=== PATIENT | female | born 1980 | race Two or more races ===

== ENCOUNTER 2016-06-29 12:47 | Emergency (ER) | payer OTHER ==
[~2016-06-29] VITALS: Ht 165.1 cm; Wt 90.7 kg
[~2016-06-29 12:47] MED LIST: CEPH-570 PO; HYDR-552 PO
[2016-06-29] MEDS ORDERED: IV SET PRIMARY PUMP SET 1 EA INFUS.SET MC ONE ×2 (13:28→14:36)
[2016-06-29] MEDS ORDERED: IV NS 0.9% 1,000 ML ONE (13:28)
[2016-06-29] MEDS ORDERED: KETOROLAC TROMETHAMINE INJ 30 MG/ML VIAL ONE (13:28)
[2016-06-29] MEDS ORDERED: METOCLOPRAMIDE HCL 10 MG/2 ML VIAL ONE (13:28)
[2016-06-29] MEDS ORDERED: diphenhydrAMINE HCL 50 MG/ML VIAL ONE (13:28)
[2016-06-29] MEDS ORDERED: IV NS 0.9% 1,000 ML BAG IV ONE (13:30)
[2016-06-29] MEDS ORDERED: METOCLOPRAMIDE HCL 10 MG/2 ML VIAL IV ONE (13:30)
[2016-06-29] MEDS ORDERED: KETOROLAC TROMETHAMINE INJ 30 MG/ML VIAL IV ONE (13:30)
[2016-06-29] MEDS ORDERED: ONDANSETRON HCL/PF 4 MG/2 ML VIAL IVP ONE (13:30)
[2016-06-29] MEDS ORDERED: diphenhydrAMINE HCL 50 MG/ML VIAL IV ONE (13:30)
[2016-06-29 13:59] LABS: KETONES,URINE Trace (NEGATIVE); LEUKOCYTE ESTERASE ,URINE Large (NEGATIVE)
[2016-06-29 14:00] LABS: ADD UA MICROSCOPIC YES
[2016-06-29 14:01] LABS: PREGNANCY TEST URINE QUAL NEGATIVE (NEGATIVE)
[2016-06-29 14:27] LABS: ADD URINE CULTURE YES; RBC,URINE 0-3 /HPF (0-2)
[2016-06-29] MEDS ORDERED: ONDANSETRON HCL/PF - ER 4 MG/2 ML VIAL IV ONE (14:30)
[2016-06-29] MEDS ORDERED: MORPHINE SULFATE INJ 2 MG/ML DISP.SYRIN IV ONE (14:30)
[2016-06-29] MEDS ORDERED: CEFTRIAXONE 1 G in IV D5W 50 ML IV ONE (14:30)
[2016-06-29] MEDS ORDERED: CEFTRIAXONE 1GM BAG (ER ONLY) 50 ML IV ONE (14:35)
[2016-06-29] MEDS ORDERED: ONDANSETRON HCL/PF 4 MG/2 ML VIAL ONE (14:35)
[2016-06-29] MEDS ORDERED: MORPHINE SULFATE INJ 4 MG/ML DISP.SYRIN ONE (14:36)
[2016-06-29 15:00] VITALS: BP 120/77
== END 2016-06-29 15:27 | disposition home or self-care (01) ==
LOC: ER 12:51
DX: G43.909 Migraine, unspecified, not intractable, without status migrainosus (principal); N39.0 Urinary tract infection, site not specified
CPT/HCPCS: 81001; 84703; 87077; 87086; 96361; 96365; 96375; 99284; A4606; J0696; J1200; J1885; J2270; J2405; J2765; J7030; Z7610; 81000-TC

== ENCOUNTER 2016-08-31 11:55 | Emergency (ER) | payer OTHER ==
[~2016-08-31] VITALS: Ht 167.6 cm; Wt 86.2 kg
[2016-08-31 11:55] VITALS: BP 127/78
== END 2016-08-31 12:28 | disposition home or self-care (01) ==
LOC: EDUNIT# 11:55 → ER 11:57
DX: H10.9 Unspecified conjunctivitis (principal); Z90.49 Acquired absence of other specified parts of digestive tract
CPT/HCPCS: 99283; A4606; Z7610

== ENCOUNTER 2016-11-24 21:27 | Emergency (ER) | payer OTHER ==
[~2016-11-24] VITALS: Ht 167.6 cm; Wt 86.2 kg
--- NOTE | 2016-11-24 21:40 | NUR ---
TO BED 4 AMBULATORY C/O LOCALIZED ABDOMINAL PAIN WITH N/V X4 DAYS. PT AAOX4 NO ACUTE DISTRESS NOTED, RESP EVEN AND UNLABORED. URINE SAMPLE COLLECTED AND SENT TO LAB.
--- NOTE | 2016-11-24 22:07 | NUR ---
ROSANNA BARNES AT BEDSIDE TO [facility] JENSEN.
--- NOTE | 2016-11-24 22:10 | NUR ---
STARTED SL 18G TO L FOREARM, BLOOD DRAWN AND SENT TO LAB.
[2016-11-24 22:24] LABS: EOSINOPHILS # (AUTO) 0.2 /CMM (0.0-0.7); EOSINOPHILS % (AUTO) 3.3 % (0.0-6.0); HEMATOCRIT 36 % (33-45); HEMOGLOBIN 12.4 g/dL (11.5-14.8); LYMPHOCYTES # (AUTO) 1.8 /CMM (0.8-4.8); LYMPHOCYTES % (AUTO) 34.4 % (20.0-44.0); MEAN CORPUSCULAR HEMOGLOBIN 29 PG (26.0-33.0); MEAN CORPUSCULAR HGB CONC 35 g/dl (31.0-36.0); MEAN CORPUSCULAR VOLUME 83 fL (82-100); MONOCYTES # (AUTO) 0.3 /CMM (0.1-1.30); MONOCYTES % (AUTO) 5.6 % (2.0-12.0); NEUTROPHILS # (AUTO) 2.9 /CMM (1.8-8.9); NEUTROPHILS % (AUTO) 56.7 % (43.0-81.0); PLATELET COUNT (AUTO) 250 /CMM (150-450); RDW COEFFICIENT OF VARIATION 12.7 (11.5-15.0); RED BLOOD CELL COUNT(AUTO) 4.28 MIL/uL (4.0-5.2); WHITE BLOOD COUNT (AUTO) 5.2 K/uL (4.3-11.0)
[2016-11-24] MEDS ORDERED: MORPHINE SULFATE INJ 4 MG/ML DISP.SYRIN ONE (22:28)
[2016-11-24] MEDS ORDERED: ONDANSETRON HCL/PF 4 MG/2 ML VIAL ONE (22:28)
[2016-11-24] MEDS ORDERED: IV SET PRIMARY 1 EA INFUS.SET MC ONE (22:29)
[2016-11-24] MEDS ORDERED: IV NS 0.9% 500 ML IV ONE (22:29)
[2016-11-24] MEDS ORDERED: MORPHINE SULFATE INJ 2 MG/ML DISP.SYRIN IV ONE (22:30)
[2016-11-24] MEDS ORDERED: IV NS 0.9% 500 ML BAG IV ONE (22:30)
[2016-11-24] MEDS ORDERED: ONDANSETRON HCL/PF 4 MG/2 ML VIAL IVP ONE (22:30)
[2016-11-24 22:31] LABS: APPEARANCE,URINE CLEAR (CLEAR); BILIRUBIN,URINE NEGATIVE (NEGATIVE); BLOOD, URINE 1+ Ery/uL (NEGATIVE); COLOR,URINE YELLOW (YELLOW); KETONES,URINE TRACE (NEGATIVE); LEUKOCYTE ESTERASE ,URINE TRACE (NEGATIVE); NITRITE, URINE NEGATIVE (NEGATIVE); PROTEIN,URINE NEGATIVE (NEGATIVE); UGLUCOSE NEGATIVE (NEGATIVE); UROBILINOGEN,URINE 0.2 EU/dL (0.2)
[2016-11-24 22:33] LABS: CREATININE 0.6 mg/dL (0.6-1.3); POTASSIUM 3.7 mmol/L (3.5-5.1)
--- NOTE | 2016-11-24 22:33 | NUR ---
RN AT BEDSIDE TO MEDICATE PT.
[2016-11-24 22:40] LABS: ALBUMIN 3.2 g/dL (3.4-5.0); BILIRUBIN,DIRECT 0.1 mg/dL (0.0-0.2); BILIRUBIN,TOTAL 0.7 mg/dL (0.2-1.0); TOTAL PROTEIN, SERUM 6.8 g/dL (6.4-8.2)
[2016-11-24 22:41] LABS: PREGNANCY TEST URINE QUAL NEGATIVE (NEGATIVE)
[2016-11-24 22:43] LABS: BACTERIA,URINE None seen /HPF (None Seen); RBC,URINE 0-2 /HPF (0-2); SQUAMOUS EPITHELIAL CELL,UR Moderate /HPF (None Seen); WBC,URINE 0-2 /HPF (0-3)
--- NOTE | 2016-11-25 00:02 | NUR ---
IV removed. Catheter intact and site benign. Pressure and 4x4 applied to site. No bleeding noted. dcPatient discharged to home in stable condition. Written and verbal after care instructions given. Patient verbalizes understanding of instruction. Patient is ambulatory with a steady gait, instructed not to drive. No further complaints.
[2016-11-25 00:04] VITALS: BP 125/69
== END 2016-11-25 00:05 | disposition home or self-care (01) ==
LOC: ER 21:28
DX: K59.00 Constipation, unspecified (principal); Z90.49 Acquired absence of other specified parts of digestive tract
CPT/HCPCS: 36415; 72128; 74176; 80048; 80076; 81001; 83690; 84703; 85025; 96374; 96375; 99285; A4606; J2270; J2405; J7040; Z7610; 81000-TC

== ENCOUNTER 2016-11-28 14:57 | Emergency (ER) | payer OTHER ==
[~2016-11-28] VITALS: Ht 167.6 cm; Wt 86.2 kg
[2016-11-28 14:57] VITALS: BP 127/71
== END 2016-11-28 15:40 | disposition home or self-care (01) ==
LOC: ER 14:59
DX: H00.011 Hordeolum externum right upper eyelid (principal); Z90.49 Acquired absence of other specified parts of digestive tract; Z98.890 Other specified postprocedural states
CPT/HCPCS: 99283; A4606; Z7610

== ENCOUNTER 2016-12-07 18:13 | Inpatient (IN) | payer OTHER ==
[~2016-12-07] VITALS: Ht 167.6 cm; Wt 108.0 kg
--- NOTE | 2016-12-07 18:50 | NUR ---
PT BIB SELF C/O N/V/D/DIFFUSE ABD PAIN X2 DAYS WITH POOR PO TOLERANCE. DENIES BLOOD IN STOOL OR VOMIT. DENIES URINARY SYMPTOMS. RESP EVEN UNLABORED. DENIES FEVER, CHILLS. SKIN WARM NONDIAPHORETIC. AMBULATORY WITH STEADY GAIT. IN ER BED 10.
[2016-12-07] MEDS ORDERED: HYDROMORPHONE INJ 2 MG/ML DISP.SYRIN IV ONE (19:00)
[2016-12-07] MEDS ORDERED: FAMOTIDINE/PF INJ 20 MG/2 ML VIAL IV ONE ×2 (19:00→19:02)
[2016-12-07] MEDS ORDERED: ONDANSETRON HCL/PF 4 MG/2 ML VIAL IVP ONE (19:00)
[2016-12-07] MEDS ORDERED: IV NS 0.9% 1,000 ML BAG IV ONE ×2 (19:00→20:30)
[2016-12-07] MEDS ORDERED: HYDROMORPHONE 1 MG/1 ML DISP.SYRIN ONE ×3 (19:02→23:01)
[2016-12-07] MEDS ORDERED: ONDANSETRON HCL/PF 4 MG/2 ML VIAL ONE ×2 (19:02→23:46)
[2016-12-07 19:13] LABS: BASOPHILS # (AUTO) 0.1 /CMM (0.0-0.2); BASOPHILS % (AUTO) 1.3 % (0.0-2.0); EOSINOPHILS # (AUTO) 0.1 /CMM (0.0-0.7); EOSINOPHILS % (AUTO) 1.2 % (0.0-6.0); HEMATOCRIT 42 % (33-45); HEMOGLOBIN 14.3 g/dL (11.5-14.8); LYMPHOCYTES # (AUTO) 0.7 /CMM (0.8-4.8); LYMPHOCYTES % (AUTO) 9.4 % (20.0-44.0); MEAN CORPUSCULAR HEMOGLOBIN 28 PG (26.0-33.0); MEAN CORPUSCULAR HGB CONC 34 g/dl (31.0-36.0); MEAN CORPUSCULAR VOLUME 84 fL (82-100); MONOCYTES # (AUTO) 0.3 /CMM (0.1-1.30); MONOCYTES % (AUTO) 3.8 % (2.0-12.0); NEUTROPHILS # (AUTO) 6.4 /CMM (1.8-8.9); NEUTROPHILS % (AUTO) 84.3 % (43.0-81.0); PLATELET COUNT (AUTO) 309 /CMM (150-450); RDW COEFFICIENT OF VARIATION 12.1 (11.5-15.0); RED BLOOD CELL COUNT(AUTO) 5.06 MIL/uL (4.0-5.2); WHITE BLOOD COUNT (AUTO) 7.7 K/uL (4.3-11.0)
[2016-12-07 19:23] LABS: CALCIUM, SERUM 8.6 mg/dL (8.5-10.1); CREATININE 0.7 mg/dL (0.6-1.3); POTASSIUM 3.8 mmol/L (3.5-5.1)
[2016-12-07 19:30] LABS: ALBUMIN 3.9 g/dL (3.4-5.0); BILIRUBIN,DIRECT 0.3 mg/dL (0.0-0.2); BILIRUBIN,TOTAL 1.4 mg/dL (0.2-1.0); TOTAL PROTEIN, SERUM 7.8 g/dL (6.4-8.2)
[2016-12-07] MEDS ORDERED: HYDROMORPHONE 1 MG/1 ML DISP.SYRIN IV ONE (20:00)
--- NOTE | 2016-12-07 20:20 | NUR ---
PT C/O CONTINUED ABD PAIN. MEDICATED PER MD.
--- NOTE | 2016-12-07 20:29 | NUR ---
AMBULATED TO RESTROOM WITH STEADY GAIT. IN RESTROOM, PT BECAME NAUSEATED AND VOMITED. SLASHER OPERATOR NOTIFIED.
[2016-12-07] MEDS ORDERED: METOCLOPRAMIDE HCL 10 MG/2 ML VIAL IV ONE (20:30)
--- NOTE | 2016-12-07 20:36 | NUR ---
US AT BEDSIDE
--- NOTE | 2016-12-07 20:37 | NUR ---
REPORT GIVEN TO RITA BREWER FOR DANDY
[2016-12-07] MEDS ORDERED: METOCLOPRAMIDE HCL 10 MG/2 ML VIAL ONE (20:48)
[2016-12-07 21:07] LABS: APPEARANCE,URINE Slightly Cloudy (CLEAR); BILIRUBIN,URINE SMALL (NEGATIVE); BLOOD, URINE Trace-lysed Ery/uL (NEGATIVE); COLOR,URINE Yellow (YELLOW); KETONES,URINE Negative (NEGATIVE); LEUKOCYTE ESTERASE ,URINE Trace (NEGATIVE); NITRITE, URINE Negative (NEGATIVE); PH,URINE 5.5 (5.0-8.0); PROTEIN,URINE 30 mg/dl (NEGATIVE); UGLUCOSE Negative (NEGATIVE); UROBILINOGEN,URINE 0.2 EU/dL (0.2)
[2016-12-07 21:12] LABS: PREGNANCY TEST URINE QUAL NEGATIVE (NEGATIVE)
[2016-12-07 21:27] LABS: MUCUS,URINE Few /LPF (None Seen); SQUAMOUS EPITHELIAL CELL,UR Many /HPF (None Seen)
[2016-12-07 21:28] LABS: BACTERIA,URINE Rare /HPF (None Seen); RBC,URINE 0-2 /HPF (0-2)
--- NOTE | 2016-12-07 21:30 | NUR ---
BRYON BOARDINGHOUSE KEEPER AT BEDSIDE, EXPLAINING TO PT NEED FOR HOSPITALIZATION. PT AGREES TO STAY.
--- NOTE | 2016-12-07 22:35 | NUR ---
PT TRANSPORTED TO [place] IN STABLE CONDITION VIA WHEELCHAIR
[2016-12-07] MEDS ORDERED: HYDROCODONE/APAP 5/325MG 1 EACH TABLET PO PRN (23:00)
[2016-12-07] MEDS ORDERED: ZOLPIDEM TARTRATE 5 MG TABLET PO PRN (23:00)
[2016-12-07] MEDS ORDERED: ACETAMINOPHEN 325 MG TABLET PO PRN (23:00)
--- NOTE | 2016-12-07 23:00 | NUR ---
MS RN NOTES RECEIVED PT IN WHEELCHAIR, AMBULATED TO BED. A/O X3. ON ROOM AIR. LAC 20G IV. COMPLAINS OF PAIN AT ABDOMEN 8/10 AND HEADACHE. ALSO COMPLAINS OF NAUSEA AND VOMITING. WILL ADMINISTER PRN PAIN AND ANTIEMETIC MEDS. ALL QUESTIONS ANSWERED AND ALL NEEDS MET. CALL LIGHT WITHIN REACH. SIDE RAIL X2. WILL CONTINUE TO MONITOR.
[2016-12-07] MEDS: HYDROMORPHONE 1 MG/1 ML DISP.SYRIN IV PRN (23:03)
[2016-12-07] MEDS ORDERED: PANTOPRAZOLE 40 MG VIAL ONE (23:10)
[2016-12-07] MEDS: PANTOPRAZOLE 40 MG VIAL IV SCH (23:13)
[2016-12-07] MEDS ORDERED: IV PREMIX D5 NS + KCL 1,000 ML IV ONE (23:13)
[2016-12-07] MEDS: ONDANSETRON HCL/PF 4 MG/2 ML VIAL IV PRN (23:51)
[2016-12-08] VITALS (7 sets, daily range): BP systolic 101–114; BP diastolic 61–72
[2016-12-08] MEDS: Potassium Chloride 20 MEQ in IV D5/ 0.9% NACL 1,000 ML IV PRN ×3 (00:30→21:36)
[2016-12-08] MEDS ORDERED: HYDROMORPHONE 1 MG/1 ML DISP.SYRIN ONE (03:12)
[2016-12-08] MEDS: HYDROMORPHONE 1 MG/1 ML DISP.SYRIN IV PRN ×5 (03:13→21:37)
[2016-12-08] MEDS ORDERED: ONDANSETRON HCL/PF 4 MG/2 ML VIAL ONE (04:08)
[2016-12-08] MEDS: ONDANSETRON HCL/PF 4 MG/2 ML VIAL IV PRN (04:08)
[2016-12-08 06:22] LABS: BASOPHILS % (AUTO) 0.1 % (0.0-2.0); EOSINOPHILS # (AUTO) 0.1 /CMM (0.0-0.7); EOSINOPHILS % (AUTO) 1.8 % (0.0-6.0); HEMATOCRIT 36 % (33-45); HEMOGLOBIN 12.5 g/dL (11.5-14.8); LYMPHOCYTES # (AUTO) 0.6 /CMM (0.8-4.8); LYMPHOCYTES % (AUTO) 13.3 % (20.0-44.0); MEAN CORPUSCULAR HEMOGLOBIN 29 PG (26.0-33.0); MEAN CORPUSCULAR HGB CONC 35 g/dl (31.0-36.0); MEAN CORPUSCULAR VOLUME 84 fL (82-100); MONOCYTES # (AUTO) 0.2 /CMM (0.1-1.30); MONOCYTES % (AUTO) 4.4 % (2.0-12.0); NEUTROPHILS # (AUTO) 3.8 /CMM (1.8-8.9); NEUTROPHILS % (AUTO) 80.4 % (43.0-81.0); PLATELET COUNT (AUTO) 239 /CMM (150-450); RDW COEFFICIENT OF VARIATION 12.6 (11.5-15.0); RED BLOOD CELL COUNT(AUTO) 4.26 MIL/uL (4.0-5.2); WHITE BLOOD COUNT (AUTO) 4.7 K/uL (4.3-11.0)
[2016-12-08 06:47] LABS: ALBUMIN 3.1 g/dL (3.4-5.0); CALCIUM, SERUM 7.4 mg/dL (8.5-10.1); CREATININE 0.6 mg/dL (0.6-1.3); POTASSIUM 3.7 mmol/L (3.5-5.1); TOTAL PROTEIN, SERUM 6.4 g/dL (6.4-8.2)
--- NOTE | 2016-12-08 07:00 | NUR ---
RN INITIAL NOTES PT IS IN BED, A/O X4, AFEBRILE, COMPLAINED OF UPPER ABDOMINAL PAIN, NO EMESIS, ON CLEAR LIQUIDS, IV SITE LAC 20G D5NS@20KCL @100ML/HR. WITH BRP, CALL LIGHT WITHIN REACH, SIDE RAILS UP AND WILL CONTINUE TO MONITOR.
[2016-12-08] MEDS: PANTOPRAZOLE 40 MG VIAL IV SCH ×2 (08:12→21:36)
--- NOTE | 2016-12-08 09:05 | NUR ---
DR LUNA SEEN THE PT, HE WILL CALL THE GI MD TO PLAN FOR EGD, AND WILL GET CONSENT FROM THE PT, AND KEEP NPO.
[2016-12-08] MEDS ORDERED: ANESTHESIA TRAY IN PYXIS 1 EA TRAY MC ONE (13:28)
--- NOTE | 2016-12-08 13:40 | NUR ---
PT CAME BACK FROM OR, DR MICHELLE PERFORMED THE EGD V/S 112/67, P 78, TEMP 98.0, ROOM AIR 100%, RESP 16, NO PAIN. WILL CONTINUE TO MONITOR
[2016-12-08] MEDS: DICYCLOMINE HCL 10 MG CAPSULE PO SCH ×2 (18:46→23:57)
--- NOTE | 2016-12-08 19:29 | NUR ---
RN CLOSING NOTES PT HAD EGD DONE, DR MACIAS PERFORMED THE PROCEDURE, PT TOLERATED IT WELL. ON CLEAR LIQUID DIET, EDUCATED REGARDING PAIN MANAGEMENT. ALL MEDS GIVEN AND TOLERATED IT WELL. ALL SAFETY MEASURES MAINTAINED, BRP AND ENCOURAGED PT OF SELF CARE. CALL LIGHT WITHIN REACH. ENDORSED TO PM NURSE FOR CONTINUATION OF CARE.
--- NOTE | 2016-12-08 20:22 | NUR ---
RN INITIAL NOTES RECEIVED PT IN BED, A/O X4, AFEBRILE, NO COMPLAIN OF UPPER ABDOMINAL PAIN, NO EMESIS, ON CLEAR LIQUIDS, IV SITE LAC 20G D5NS@20KCL @100ML/HR. WITH BRP, CALL LIGHT WITHIN REACH, SIDE RAILS UP AND WILL CONTINUE TO MONITOR.
[2016-12-09] VITALS: BP 118/68
[2016-12-09] MEDS: HYDROMORPHONE 1 MG/1 ML DISP.SYRIN IV PRN ×2 (04:04→08:17)
[2016-12-09] MEDS ORDERED: DICYCLOMINE HCL 10 MG CAPSULE PO ONE ×2 (05:50→06:27)
[2016-12-09] MEDS: DICYCLOMINE HCL 10 MG CAPSULE PO SCH ×2 (06:29→12:21)
--- NOTE | 2016-12-09 07:02 | NUR ---
RN CLOSING NOTES PT HAD EGD DONE, DR MACIAS PERFORMED THE PROCEDURE, PT TOLERATED IT WELL. ON CLEAR LIQUID DIET, EDUCATED REGARDING PAIN MANAGEMENT. ALL MEDS GIVEN AND TOLERATED IT WELL. ALL SAFETY MEASURES MAINTAINED, BRP AND ENCOURAGED PT OF SELF CARE. CALL LIGHT WITHIN REACH. ENDORSED TO PM NURSE FOR CONTINUATION OF CARE, PT ASKING FOR PAIN MEDICATION AROUND THE CLOCK. F/U ON DISCHARGE PLANNING PER INSURANCE.
[2016-12-09 08:00] VITALS: BP 105/62
[2016-12-09] MEDS: PANTOPRAZOLE 40 MG VIAL IV SCH (08:17)
[2016-12-09] MEDS: ONDANSETRON HCL/PF 4 MG/2 ML VIAL IV PRN (08:17)
[2016-12-09] MEDS: Potassium Chloride 20 MEQ in IV D5/ 0.9% NACL 1,000 ML IV PRN (10:32)
[2016-12-09] MEDS ORDERED: DICY10CA37 PO (11:00)
[2016-12-09] MEDS ORDERED: PANT40TA2 PO (11:00)
[2016-12-09] MEDS ORDERED: ONDA4TAB5 PO (11:00)
[2016-12-09 11:53] LABS: ALBUMIN 2.9 g/dL (3.4-5.0); BILIRUBIN,DIRECT 0.3 mg/dL (0.0-0.2); BILIRUBIN,TOTAL 1.6 mg/dL (0.2-1.0); TOTAL PROTEIN, SERUM 6.1 g/dL (6.4-8.2)
--- NOTE | 2016-12-09 15:10 | NUR ---
PT D/C HOME WITH ALL BELONGINGS AND MEDICATION ORDERS.PT VERBALIZED UNDERSTANDING FOR ALL MEDICATIONS.
== END 2016-12-09 15:00 | disposition home or self-care (01) | DRG 241 ==
LOC: ER 18:14 → MEDSG1 21:38
PROVIDERS: ADMIT Internal Medicine; ATTEND Internal Medicine
PROC: 0DB68ZX Excision of Stomach, Via Natural or Artificial Opening Endoscopic, Diagnostic (ICD-10-PCS; principal; 2016-12-08 12:30)
DX: K29.00 Acute gastritis without bleeding (principal); E66.01 Morbid (severe) obesity due to excess calories; Z90.49 Acquired absence of other specified parts of digestive tract; Z68.38 Body mass index [BMI] 38.0-38.9, adult; Z98.890 Other specified postprocedural states; K20.9 Esophagitis, unspecified; G89.29 Other chronic pain
CPT/HCPCS: 36415; 76705-TC; 80048-TC; 80053-TC; 80076-TC; 81000-TC; 83690-TC; 84703-TC; 85025-TC; 87081-TC; 88305-TC; 88313-TC; 88342; A4606; C9113; J1170; J2405; J2765; J3480; J3490; J7030; J7042; Z7610

== ENCOUNTER 2016-12-10 22:11 | Emergency (ER) | payer OTHER ==
[~2016-12-10] VITALS: Ht 167.6 cm; Wt 104.3 kg
[~2016-12-10 22:11] MED LIST changes: -CEPH-570 PO; +DICY10CA37 PO; -HYDR-552 PO; +ONDA4TAB5 PO; +PANT40TA2 PO
--- NOTE | 2016-12-10 22:17 | NUR ---
ER MD AT BEDSIDE TO EVAL PT WITH ORDERS RECEIVED.
--- NOTE | 2016-12-10 22:20 | NUR ---
TO BED 2 AMBULATORY C/O N/V. PT AAOX4 NO ACUTE DISTRESS NOTED, RESP EVEN AND UNLABORED. PT REPORT THAT SHE JUST GOT DISCHARGED FROM THE HOSPITAL YESTERDAY AND EGD WAS DONE. PENDING ER MD GRIGSBY.
[2016-12-10] MEDS ORDERED: MAG HYDROX/AL HYDROX/SIMETH 30 ML UDC ONE (22:29)
[2016-12-10] MEDS ORDERED: LIDOCAINE VISCOUS 2% UD 15 ML UDC ONE (22:29)
[2016-12-10] MEDS ORDERED: LIDOCAINE VISCOUS 2% UD 15 ML UDC MM ONE (22:30)
[2016-12-10] MEDS ORDERED: MAG HYDROX/AL HYDROX/SIMETH 30 ML UDC PO ONE (22:30)
--- NOTE | 2016-12-10 22:40 | NUR ---
BLOOD DRAWN BY WAFER MOUNTER.
[2016-12-10 22:52] LABS: BASOPHILS % (AUTO) 0.2 % (0.0-2.0); EOSINOPHILS # (AUTO) 0.1 /CMM (0.0-0.7); EOSINOPHILS % (AUTO) 3.4 % (0.0-6.0); HEMATOCRIT 38 % (33-45); HEMOGLOBIN 13.1 g/dL (11.5-14.8); LYMPHOCYTES # (AUTO) 1.2 /CMM (0.8-4.8); LYMPHOCYTES % (AUTO) 27.3 % (20.0-44.0); MEAN CORPUSCULAR HEMOGLOBIN 29 PG (26.0-33.0); MEAN CORPUSCULAR HGB CONC 34 g/dl (31.0-36.0); MEAN CORPUSCULAR VOLUME 84 fL (82-100); MONOCYTES # (AUTO) 0.4 /CMM (0.1-1.30); MONOCYTES % (AUTO) 9.1 % (2.0-12.0); NEUTROPHILS # (AUTO) 2.6 /CMM (1.8-8.9); PLATELET COUNT (AUTO) 268 /CMM (150-450); RDW COEFFICIENT OF VARIATION 12.5 (11.5-15.0); RED BLOOD CELL COUNT(AUTO) 4.58 MIL/uL (4.0-5.2); WHITE BLOOD COUNT (AUTO) 4.3 K/uL (4.3-11.0)
[2016-12-10 23:16] LABS: ALBUMIN 3.5 g/dL (3.4-5.0); BILIRUBIN,DIRECT 0.2 mg/dL (0.0-0.2); BILIRUBIN,TOTAL 1.2 mg/dL (0.2-1.0); CALCIUM, SERUM 8.1 mg/dL (8.5-10.1); CREATININE 0.7 mg/dL (0.6-1.3); POTASSIUM 3.8 mmol/L (3.5-5.1); TOTAL PROTEIN, SERUM 7.1 g/dL (6.4-8.2)
--- NOTE | 2016-12-11 00:16 | NUR ---
ROSANNA BARNES AT BESIDE TALKING TO PT REGARIDNG LAB RESULTS.
--- NOTE | 2016-12-11 00:28 | NUR ---
Patient discharged to home in stable condition. Written and verbal after care instructions given. Patient verbalizes understanding of instruction. ambulatory with a steady gait notwed. pt aaox4 no acute distress noted, resp even and unlabored. no n/v noted.
[2016-12-11 00:29] VITALS: BP 127/75
== END 2016-12-11 00:29 | disposition home or self-care (01) ==
LOC: ER 22:12
DX: K29.70 Gastritis, unspecified, without bleeding (principal); K20.9 Esophagitis, unspecified; Z90.49 Acquired absence of other specified parts of digestive tract
CPT/HCPCS: 36415; 80048-TC; 80076-TC; 83690-TC; 85025-TC; A4606; Z7610

== ENCOUNTER 2017-01-05 15:00 | Emergency (ER) | payer OTHER ==
[~2017-01-05] VITALS: Ht 165.1 cm; Wt 86.2 kg
[2017-01-05 15:46] VITALS: BP 125/83
== END 2017-01-05 15:48 | disposition home or self-care (01) ==
LOC: ER 15:05
DX: R10.13 Epigastric pain (principal); R19.7 Diarrhea, unspecified; G89.29 Other chronic pain; K62.5 Hemorrhage of anus and rectum; Z90.49 Acquired absence of other specified parts of digestive tract
CPT/HCPCS: 99283; A4606; Z7610

== ENCOUNTER 2017-02-18 16:13 | Emergency (ER) | payer MEDICAID, OTHER ==
[~2017-02-18] VITALS: Ht 167.6 cm; Wt 81.6 kg
--- NOTE | 2017-02-18 16:50 | NUR ---
PT CAME IN WITH C/O DIFFUSED ABD PAIN X 2 WEEKS WITH N/V. DENIES FEVER. SEEN BY PA. RICCI. SAFETY AND COMFORT MEASURES PROVIDED. WILL MONITOR.
[2017-02-18 17:11] LABS: BASOPHILS % (AUTO) 0.2 % (0.0-2.0); EOSINOPHILS # (AUTO) 0.1 /CMM (0.0-0.7); HEMATOCRIT 38 % (33-45); HEMOGLOBIN 13.1 g/dL (11.5-14.8); LYMPHOCYTES # (AUTO) 1.6 /CMM (0.8-4.8); LYMPHOCYTES % (AUTO) 33.5 % (20.0-44.0); MEAN CORPUSCULAR HEMOGLOBIN 29 PG (26.0-33.0); MEAN CORPUSCULAR HGB CONC 34 g/dl (31.0-36.0); MEAN CORPUSCULAR VOLUME 84 fL (82-100); MONOCYTES # (AUTO) 0.3 /CMM (0.1-1.30); MONOCYTES % (AUTO) 6.8 % (2.0-12.0); NEUTROPHILS # (AUTO) 2.7 /CMM (1.8-8.9); NEUTROPHILS % (AUTO) 56.5 % (43.0-81.0); PLATELET COUNT (AUTO) 274 /CMM (150-450); RDW COEFFICIENT OF VARIATION 12.9 (11.5-15.0); RED BLOOD CELL COUNT(AUTO) 4.57 MIL/uL (4.0-5.2); WHITE BLOOD COUNT (AUTO) 4.8 K/uL (4.3-11.0)
[2017-02-18 17:14] LABS: APPEARANCE,URINE CLEAR (CLEAR); BILIRUBIN,URINE NEGATIVE (NEGATIVE); BLOOD, URINE TRACE-INTA Ery/uL (NEGATIVE); COLOR,URINE YELLOW (YELLOW); KETONES,URINE TRACE (NEGATIVE); LEUKOCYTE ESTERASE ,URINE 2+ (NEGATIVE); NITRITE, URINE NEGATIVE (NEGATIVE); PH,URINE 6.5 (5.0-8.0); PROTEIN,URINE TRACE mg/dl (NEGATIVE); UGLUCOSE NEGATIVE (NEGATIVE); UROBILINOGEN,URINE 0.2 EU/dL (0.2)
[2017-02-18 17:16] LABS: PREGNANCY TEST URINE QUAL NEGATIVE (NEGATIVE)
--- NOTE | 2017-02-18 17:17 | NUR ---
IV ACCESS STARTED. BLOOD DRAWN FOR LABS. MEDICATED ORDERED.
[2017-02-18 17:23] LABS: CALCIUM, SERUM 8.4 mg/dL (8.5-10.1); CREATININE 0.7 mg/dL (0.6-1.3); POTASSIUM 3.6 mmol/L (3.5-5.1)
[2017-02-18 17:24] LABS: BACTERIA,URINE 3+ /HPF (None Seen)
[2017-02-18 17:29] LABS: ALBUMIN 3.6 g/dL (3.4-5.0); BILIRUBIN,DIRECT 0.2 mg/dL (0.0-0.2); BILIRUBIN,TOTAL 0.9 mg/dL (0.2-1.0); TOTAL PROTEIN, SERUM 7.3 g/dL (6.4-8.2)
--- NOTE | 2017-02-18 18:00 | NUR ---
IV removed. Catheter intact and site benign. Pressure and 4x4 applied to site. No bleeding noted.
--- NOTE | 2017-02-18 18:11 | NUR ---
Patient discharged to home in stable condition. Written and verbal after care instructions given. Patient verbalizes understanding of instruction.
[2017-02-18 18:13] VITALS: BP 128/74
== END 2017-02-18 18:15 | disposition home or self-care (01) ==
LOC: ER 16:16
DX: N39.0 Urinary tract infection, site not specified (principal); B96.81 Helicobacter pylori [H. pylori] as the cause of diseases classified elsewhere; E66.9 Obesity, unspecified; Z86.19 Personal history of other infectious and parasitic diseases; Z90.49 Acquired absence of other specified parts of digestive tract
CPT/HCPCS: 36415; 74020-TC; 80048-TC; 80076-TC; 81000-TC; 83690-TC; 84703-TC; 85025-TC; 87086-TC; A4606; J2270; J2405; Z7610

== ENCOUNTER 2017-05-01 13:37 | Emergency (ER) | payer MEDICAID, OTHER ==
[~2017-05-01] VITALS: Ht 160 cm; Wt 108.9 kg
[2017-05-01 13:49] VITALS: BP 116/62
[2017-05-01] MEDS ORDERED: IBUPROFEN 600 MG TABLET PO ONE ×2 (14:24→14:30)
== END 2017-05-01 15:47 | disposition home or self-care (01) ==
LOC: ER 13:40
DX: S92.511A Displaced fracture of proximal phalanx of right lesser toe(s), initial encounter for closed fracture (principal); Z90.49 Acquired absence of other specified parts of digestive tract; Z98.890 Other specified postprocedural states; W22.09XA Striking against other stationary object, initial encounter; Y93.89 Activity, other specified; Y92.89 Other specified places as the place of occurrence of the external cause; Y99.8 Other external cause status
CPT/HCPCS: 73660; 99284; A4606; Z7610

== ENCOUNTER 2017-06-22 20:55 | Emergency (ER) | payer OTHER ==
[~2017-06-22] VITALS: Ht 167.6 cm; Wt 108.9 kg
--- NOTE | 2017-06-22 21:05 | NUR ---
PT AMBULATORY TO ER BED 2. PT BIB SELF C/O LOWER BACK PAIN X 3 DAYS. HX OF KIDNEY STONES. PT VSS/RESP EVEN UNLABORED/NAD NOTED/SKIN WARM AND DRY/DENIES N-V-D/AFEBRILE/AOX4. AWAITING MD GRIGSBY.
--- NOTE | 2017-06-22 21:16 | NUR ---
URINE SPECIMEN OBTAINED AND SENT TO THE LAB.
[2017-06-22] MEDS ORDERED: KETOROLAC TROMETHAMINE INJ 30 MG/ML VIAL ONE ×2 (21:18→23:32)
[2017-06-22] MEDS ORDERED: KETOROLAC TROMETHAMINE INJ 30 MG/ML VIAL IV ONE ×2 (21:30→23:30)
[2017-06-22] MEDS ORDERED: IV NS 0.9% 1,000 ML BAG IV ONE (21:30)
[2017-06-22 21:32] LABS: BASOPHILS # (AUTO) 0.2 /CMM (0.0-0.2); BASOPHILS % (AUTO) 2.8 % (0.0-2.0); EOSINOPHILS # (AUTO) 0.2 /CMM (0.0-0.7); EOSINOPHILS % (AUTO) 3.4 % (0.0-6.0); HEMATOCRIT 36 % (33-45); HEMOGLOBIN 12.6 g/dL (11.5-14.8); LYMPHOCYTES # (AUTO) 1.8 /CMM (0.8-4.8); MEAN CORPUSCULAR HEMOGLOBIN 29 PG (26.0-33.0); MEAN CORPUSCULAR HGB CONC 36 g/dl (31.0-36.0); MEAN CORPUSCULAR VOLUME 83 fL (82-100); MONOCYTES # (AUTO) 0.3 /CMM (0.1-1.30); MONOCYTES % (AUTO) 5.6 % (2.0-12.0); NEUTROPHILS % (AUTO) 56.2 % (43.0-81.0); PLATELET COUNT (AUTO) 307 /CMM (150-450); RDW COEFFICIENT OF VARIATION 12.3 (11.5-15.0); RED BLOOD CELL COUNT(AUTO) 4.32 MIL/uL (4.0-5.2); WHITE BLOOD COUNT (AUTO) 5.5 K/uL (4.3-11.0)
--- NOTE | 2017-06-22 21:32 | NUR ---
20G IV TO L FA X 1 ATTEMPT USING ASEPTIC TECH, BLOOD HANDED OVER TO LAB AT THE BEDSIDE. IV FLUSHES EASILY WITH NS, NO S/S INFILTRATION.
[2017-06-22 21:42] LABS: CALCIUM, SERUM 8.6 mg/dL (8.5-10.1); CREATININE 0.6 mg/dL (0.6-1.3); POTASSIUM 3.7 mmol/L (3.5-5.1)
[2017-06-22 21:48] LABS: ALBUMIN 3.3 g/dL (3.4-5.0); BILIRUBIN,DIRECT 0.1 mg/dL (0.0-0.2); BILIRUBIN,TOTAL 0.5 mg/dL (0.2-1.0); TOTAL PROTEIN, SERUM 7.3 g/dL (6.4-8.2)
[2017-06-22 22:13] LABS: APPEARANCE,URINE CLEAR (CLEAR); BILIRUBIN,URINE NEGATIVE (NEGATIVE); BLOOD, URINE 3+ Ery/uL (NEGATIVE); COLOR,URINE YELLOW (YELLOW); KETONES,URINE NEGATIVE (NEGATIVE); LEUKOCYTE ESTERASE ,URINE NEGATIVE (NEGATIVE); NITRITE, URINE NEGATIVE (NEGATIVE); PROTEIN,URINE NEGATIVE (NEGATIVE); UGLUCOSE NEGATIVE (NEGATIVE); UROBILINOGEN,URINE 0.2 EU/dL (0.2)
[2017-06-22 22:23] LABS: BACTERIA,URINE None seen /HPF (None Seen); MUCUS,URINE Moderate /LPF (None Seen); RBC,URINE 51-80 /HPF (0-2); SQUAMOUS EPITHELIAL CELL,UR Few /HPF (None Seen)
--- NOTE | 2017-06-22 22:28 | NUR ---
PT TO CT VIA W/C, VSS.
[2017-06-22 23:46] VITALS: BP 132/80
== END 2017-06-22 23:47 | disposition home or self-care (01) ==
LOC: ER 21:00
DX: N20.0 Calculus of kidney (principal); K76.0 Fatty (change of) liver, not elsewhere classified; N28.1 Cyst of kidney, acquired; Z90.49 Acquired absence of other specified parts of digestive tract
CPT/HCPCS: 36415; 74176; 80048; 80076; 81001; 83690; 84703; 85025; 96361; 96374; 96375; 99285; A4606; J1885 ×2; J7030; Z7610; 81000-TC

== ENCOUNTER 2017-11-03 20:23 | Emergency (ER) | payer OTHER ==
[~2017-11-03] VITALS: Ht 167.6 cm; Wt 90.7 kg
--- NOTE | 2017-11-03 20:25 | NUR ---
BB SELF; LOWER BACK PAIN RADIATING TO LEFT LOWER ABD, NAD NOTED, VSS, RESP EVEN AND UNLABORED, PT WAS PUT ON MONITOR, WAITING FOR MD GRIGSBY.
[2017-11-03 20:59] LABS: APPEARANCE,URINE Clear (CLEAR); BILIRUBIN,URINE SMALL (NEGATIVE); BLOOD, URINE Trace-lysed Ery/uL (NEGATIVE); COLOR,URINE Yellow (YELLOW); KETONES,URINE Trace (NEGATIVE); LEUKOCYTE ESTERASE ,URINE Trace (NEGATIVE); NITRITE, URINE Negative (NEGATIVE); PROTEIN,URINE Trace mg/dl (NEGATIVE); UGLUCOSE Negative (NEGATIVE)
[2017-11-03] MEDS ORDERED: MORPHINE SULFATE INJ 2 MG/ML DISP.SYRIN IV ONE (21:00)
[2017-11-03] MEDS ORDERED: IV NS 0.9% 1,000 ML BAG IV ONE (21:00)
[2017-11-03] MEDS ORDERED: ONDANSETRON HCL/PF 4 MG/2 ML VIAL IVP ONE (21:00)
[2017-11-03] MEDS ORDERED: ONDANSETRON HCL/PF 4 MG/2 ML VIAL ONE ×2 (21:03→21:18)
[2017-11-03] MEDS ORDERED: MORPHINE SULFATE INJ 4 MG/ML DISP.SYRIN ONE ×2 (21:03→21:18)
[2017-11-03 21:08] LABS: BASOPHILS % (AUTO) 0.3 % (0.0-2.0); EOSINOPHILS % (AUTO) 2.6 % (0.0-6.0); HEMATOCRIT 38 % (33-45); LYMPHOCYTES # (AUTO) 1.5 /CMM (0.8-4.8); LYMPHOCYTES % (AUTO) 29.5 % (20.0-44.0); MEAN CORPUSCULAR HGB CONC 35 g/dl (31.0-36.0); MEAN CORPUSCULAR VOLUME 86 fL (82-100); MONOCYTES # (AUTO) 0.4 /CMM (0.1-1.30); MONOCYTES % (AUTO) 8.5 % (2.0-12.0); NEUTROPHILS % (AUTO) 59.1 % (43.0-81.0); PLATELET COUNT (AUTO) 270 /CMM (150-450); RDW COEFFICIENT OF VARIATION 13.6 (11.5-15.0); RED BLOOD CELL COUNT(AUTO) 4.38 MIL/uL (4.0-5.2); WHITE BLOOD COUNT (AUTO) 5.1 K/uL (4.3-11.0)
[2017-11-03 21:16] LABS: CALCIUM, SERUM 8.9 mg/dL (8.5-10.1); CREATININE 0.8 mg/dL (0.6-1.3); POTASSIUM 3.8 mmol/L (3.5-5.1)
[2017-11-03 21:29] LABS: BACTERIA,URINE Few /HPF (None Seen); SQUAMOUS EPITHELIAL CELL,UR Moderate /HPF (None Seen)
[2017-11-03] MEDS ORDERED: KETOROLAC TROMETHAMINE INJ 30 MG/ML VIAL ONE (22:25)
[2017-11-03] MEDS ORDERED: SILVER SULFADIAZINE CREAM 25 GM TUBE ONE (22:42)
[2017-11-03 22:57] VITALS: BP 109/61
--- NOTE | 2017-11-03 22:58 | NUR ---
Patient discharged to home in stable condition. Written and verbal after care instructions given. Patient verbalizes understanding of instruction.IV removed. Catheter intact and site benign. Pressure and 4x4 applied to site. No bleeding noted.
[2017-11-03] MEDS ORDERED: KETOROLAC TROMETHAMINE INJ 30 MG/ML VIAL IV ONE (23:00)
== END 2017-11-03 22:59 | disposition home or self-care (01) ==
LOC: ER 20:24
DX: N20.0 Calculus of kidney (principal); Z90.49 Acquired absence of other specified parts of digestive tract
CPT/HCPCS: 36415; 80048-TC; 81000-TC; 85025-TC; A4606; J1885; J2270; J2405; J7030; Z7610

== ENCOUNTER 2017-11-05 18:18 | Emergency (ER) | payer OTHER ==
[~2017-11-05] VITALS: Ht 167.6 cm; Wt 90.7 kg
--- NOTE | 2017-11-05 18:35 | NUR ---
AAOX3, CAME TO ER C/O SEEN HERE SUNDAY DX L KIDNEY STONE; BACK PAIN CONTINUES, NOW [place]+N/V. RR IS EVEN AND UNLABORED WITH NAD NOTED. SKIN IS WARM AND DRY. AWAITING MD FOR EVAL.
[2017-11-05] MEDS ORDERED: ONDANSETRON HCL/PF 4 MG/2 ML VIAL ONE (18:56)
[2017-11-05 18:57] LABS: BASOPHILS % (AUTO) 0.3 % (0.0-2.0); EOSINOPHILS % (AUTO) 1.5 % (0.0-6.0); HEMATOCRIT 40 % (33-45); HEMOGLOBIN 14.1 g/dL (11.5-14.8); LYMPHOCYTES # (AUTO) 1.1 /CMM (0.8-4.8); LYMPHOCYTES % (AUTO) 17.5 % (20.0-44.0); MEAN CORPUSCULAR HGB CONC 35 g/dl (31.0-36.0); MEAN CORPUSCULAR VOLUME 83 fL (82-100); MONOCYTES # (AUTO) 0.5 /CMM (0.1-1.30); MONOCYTES % (AUTO) 7.9 % (2.0-12.0); NEUTROPHILS # (AUTO) 4.8 /CMM (1.8-8.9); NEUTROPHILS % (AUTO) 72.8 % (43.0-81.0); PLATELET COUNT (AUTO) 285 /CMM (150-450); RDW COEFFICIENT OF VARIATION 12.7 (11.5-15.0); RED BLOOD CELL COUNT(AUTO) 4.84 MIL/uL (4.0-5.2); WHITE BLOOD COUNT (AUTO) 6.5 K/uL (4.3-11.0)
[2017-11-05] MEDS ORDERED: HYDROMORPHONE INJ 2 MG/ML DISP.SYRIN ONE ×2 (18:57→20:08)
[2017-11-05] MEDS ORDERED: IV NS 0.9% 1,000 ML BAG IV ONE ×2 (19:00→22:00)
[2017-11-05] MEDS ORDERED: HYDROMORPHONE INJ 2 MG/ML DISP.SYRIN IV ONE (19:00)
[2017-11-05] MEDS ORDERED: ONDANSETRON HCL/PF 4 MG/2 ML VIAL IVP ONE (19:00)
[2017-11-05 19:08] LABS: CALCIUM, SERUM 9.5 mg/dL (8.5-10.1); CREATININE 0.6 mg/dL (0.6-1.3); POTASSIUM 3.7 mmol/L (3.5-5.1)
--- NOTE | 2017-11-05 19:10 | NUR ---
RECEIVED REPORT FROM OSMAN PIMENTEL FOR D[facility].
[2017-11-05 19:14] LABS: BILIRUBIN,DIRECT 0.4 mg/dL (0.0-0.2); BILIRUBIN,TOTAL 1.9 mg/dL (0.2-1.0); TOTAL PROTEIN, SERUM 7.9 g/dL (6.4-8.2)
[2017-11-05 19:15] LABS: INR 0.92 (0.85-1.15)
[2017-11-05 19:17] LABS: APPEARANCE,URINE Clear (CLEAR); BILIRUBIN,URINE SMALL (NEGATIVE); BLOOD, URINE Small Ery/uL (NEGATIVE); COLOR,URINE Yellow (YELLOW); KETONES,URINE Negative (NEGATIVE); LEUKOCYTE ESTERASE ,URINE Small (NEGATIVE); NITRITE, URINE Negative (NEGATIVE); PH,URINE 5.5 (5.0-8.0); PROTEIN,URINE Negative (NEGATIVE); UGLUCOSE Negative (NEGATIVE); UROBILINOGEN,URINE 0.2 EU/dL (0.2)
[2017-11-05] MEDS ORDERED: IOHEXOL-300 100 ML VIAL IV ONE (19:32)
--- NOTE | 2017-11-05 19:34 | NUR ---
PT TO CT.
--- NOTE | 2017-11-05 19:43 | NUR ---
PT RETURNED FROM CT.
[2017-11-05 19:52] LABS: BACTERIA,URINE Few /HPF (None Seen); MUCUS,URINE Few /LPF (None Seen); SQUAMOUS EPITHELIAL CELL,UR Many /HPF (None Seen); URINE AMORPHOUS URATE Moderate /HPF (None Seen)
[2017-11-05] MEDS ORDERED: MAG HYDROX/AL HYDROX/SIMETH 30 ML UDC ONE (20:27)
[2017-11-05] MEDS ORDERED: LIDOCAINE VISCOUS 2% UD 15 ML UDC ONE (20:27)
[2017-11-05] MEDS ORDERED: HYDROMORPHONE 1 MG/1 ML DISP.SYRIN IV ONE (20:30)
[2017-11-05] MEDS ORDERED: LIDOCAINE VISCOUS 2% UD 15 ML UDC MM ONE (20:30)
[2017-11-05] MEDS ORDERED: MAG HYDROX/AL HYDROX/SIMETH 30 ML UDC PO ONE (20:30)
--- NOTE | 2017-11-05 20:45 | NUR ---
IV removed. Catheter intact and site benign. Pressure and 4x4 applied to site. No bleeding noted. Patient discharged to home in stable condition. Written and verbal after care instructions given. Patient verbalizes understanding of instruction. ambulatory with a steady gait. instructed pt not to drive, pt verbalize understanding.
--- NOTE | 2017-11-05 20:56 | NUR ---
PT WITH EPISODE OF VOMITTING S/P STANDING UP. DANI YE MADE AWARE.
[2017-11-05] MEDS ORDERED: ONDANSETRON 4 MG TAB.RAPDIS ONE (20:57)
[2017-11-05] MEDS ORDERED: ONDANSETRON 4 MG TAB.RAPDIS SL ONE (21:00)
--- NOTE | 2017-11-05 21:03 | NUR ---
DANI ADAMS AT BEDSIDE FOR EVAL.
--- NOTE | 2017-11-05 21:28 | NUR ---
FAXED CLINICALS AND FACESHEET TO [facility] [phone]
[2017-11-05] MEDS ORDERED: LORAZEPAM INJ 2 MG/ML VIAL ONE (22:21)
[2017-11-05] MEDS ORDERED: LORAZEPAM INJ 2 MG/ML VIAL IV ONE (22:30)
--- NOTE | 2017-11-05 22:44 | NUR ---
MUSIC PUBLISHER DEGRASSI AT SPEAKING TO [facility] AT THIS TIME REGARDING POC.
--- NOTE | 2017-11-05 23:30 | NUR ---
PT APPEARS COMFORTABLE.
--- NOTE | 2017-11-06 00:47 | NUR ---
Call from [facility] caseworker protective services Livia. Accepted at [facility] by Dr Chatman. Bed 307-A. # for report [phone]. ETA 30 min for transport.
--- NOTE | 2017-11-06 01:02 | NUR ---
REPORT GIVEN TO VANE LICONA FOR [facility]/ BED 307-A. INFORMED RN ETA 30MINS ROPEWALK ROPE MAKER.
[2017-11-06 01:15] VITALS: BP 106/57
--- NOTE | 2017-11-06 01:16 | NUR ---
REPORT GIVEN EMT FROM [place] [id number] FOR D[facility]Y, IV INTACT PATENT NO S/S INFECTION OF INFILTRATION NOTED. PT WITH ALL PERSONAL BELONGINGS. PT VSS. PT AWARE OF TRANSFER, PT TRANSFERRED VIA [facility].
== END 2017-11-06 01:23 | disposition short-term general hospital (02) ==
LOC: ER 18:21
DX: K29.70 Gastritis, unspecified, without bleeding (principal); R11.2 Nausea with vomiting, unspecified; Z90.49 Acquired absence of other specified parts of digestive tract
CPT/HCPCS: 36415; 74160; 80048; 80076; 80305; 81001; 83690; 84703; 85025; 85730; 96361; 96374; 96375; 96376; 99285; A4606; J1170 ×2; J2060; J2405; J7030 ×2; Q0162; Q9967; Z7610; 81000-TC

== ENCOUNTER 2018-01-20 10:17 | Emergency (ER) | payer OTHER ==
[~2018-01-20] VITALS: Ht 167.6 cm; Wt 87.1 kg
[2018-01-20 10:17] VITALS: BP 115/77
[2018-01-20 10:38] LABS: APPEARANCE,URINE Cloudy (CLEAR); BILIRUBIN,URINE Negative (NEGATIVE); BLOOD, URINE Small Ery/uL (NEGATIVE); COLOR,URINE Yellow (YELLOW); KETONES,URINE Negative (NEGATIVE); LEUKOCYTE ESTERASE ,URINE Large (NEGATIVE); NITRITE, URINE Negative (NEGATIVE); PROTEIN,URINE 30 mg/dl (NEGATIVE); UGLUCOSE Negative (NEGATIVE); UROBILINOGEN,URINE 0.2 EU/dL (0.2)
[2018-01-20 10:45] LABS: BACTERIA,URINE Many /HPF (None Seen); SQUAMOUS EPITHELIAL CELL,UR Many /HPF (None Seen); WBC,URINE TOO NUMEROUS TO COUN /HPF (0-3)
== END 2018-01-20 11:07 | disposition home or self-care (01) ==
LOC: ER 10:18
DX: N39.0 Urinary tract infection, site not specified (principal); Z90.49 Acquired absence of other specified parts of digestive tract; Z87.442 Personal history of urinary calculi; Z98.890 Other specified postprocedural states
CPT/HCPCS: 81001; 87086; 99284; A4606; Z7610; 81000-TC

== ENCOUNTER 2018-10-03 16:46 | Emergency (ER) | payer OTHER ==
[~2018-10-03] VITALS: Ht 167.6 cm; Wt 81.6 kg
--- NOTE | 2018-10-03 17:10 | NUR ---
LOWER ABDOMINAL PAIN X 3 WEEKS GETTING WORSE, NO IMPROVEMENT AFTER TAKING MACROBID. PATIENT PLACED ON THE MONITOR, KEPT COMFORTABLE, WILL CONTINUE TO MONITOR.
[2018-10-03 17:35] LABS: APPEARANCE,URINE Clear (CLEAR); BILIRUBIN,URINE Negative (NEGATIVE); BLOOD, URINE Trace-lysed Ery/uL (NEGATIVE); COLOR,URINE Yellow (YELLOW); KETONES,URINE Negative (NEGATIVE); LEUKOCYTE ESTERASE ,URINE Moderate (NEGATIVE); NITRITE, URINE Negative (NEGATIVE); PROTEIN,URINE Negative (NEGATIVE); UGLUCOSE Negative (NEGATIVE); UROBILINOGEN,URINE 0.2 EU/dL (0.2)
[2018-10-03 17:40] LABS: BACTERIA,URINE 2+ /HPF (None Seen); SQUAMOUS EPITHELIAL CELL,UR Few /HPF (None Seen); WBC,URINE 21-50 /HPF (0-3)
[2018-10-03] MEDS ORDERED: CEFTRIAXONE 1GM BAG (ER ONLY) 50 ML IV ONE (18:23)
[2018-10-03] MEDS ORDERED: KETOROLAC TROMETHAMINE 15 MG/ML VIAL ONE (18:23)
[2018-10-03] MEDS ORDERED: ONDANSETRON HCL/PF 4 MG/2 ML VIAL ONE (18:24)
[2018-10-03] MEDS ORDERED: MORPHINE SULFATE INJ 4 MG/ML DISP.SYRIN ONE (18:24)
[2018-10-03] MEDS ORDERED: ONDANSETRON HCL/PF 4 MG/2 ML VIAL IVP ONE (18:30)
[2018-10-03] MEDS ORDERED: IV NS 0.9% 1,000 ML BAG IV ONE (18:30)
[2018-10-03] MEDS ORDERED: CEFTRIAXONE 1 G in IV D5W 50 ML IV ONE (18:30)
[2018-10-03] MEDS ORDERED: MORPHINE SULFATE INJ 2 MG/ML DISP.SYRIN IV ONE (18:30)
[2018-10-03] MEDS ORDERED: KETOROLAC TROMETHAMINE INJ 30 MG/ML VIAL IV ONE (18:30)
--- NOTE | 2018-10-03 19:29 | NUR ---
Patient a/ox4, PIV removed, Rx prescription given and explaned. Patient discharged to home in stable condition. Written and verbal after care instructions given. Patient verbalizes understanding of instruction.
[2018-10-03 19:36] VITALS: BP 112/74
== END 2018-10-03 19:40 | disposition home or self-care (01) ==
LOC: ER 16:46
DX: N12 Tubulo-interstitial nephritis, not specified as acute or chronic (principal); R11.2 Nausea with vomiting, unspecified; N39.0 Urinary tract infection, site not specified; K58.9 Irritable bowel syndrome, unspecified; F10.10 Alcohol abuse, uncomplicated; F17.200 Nicotine dependence, unspecified, uncomplicated; Y90.9 Presence of alcohol in blood, level not specified; Z98.890 Other specified postprocedural states; Z90.49 Acquired absence of other specified parts of digestive tract; Z87.442 Personal history of urinary calculi
CPT/HCPCS: 81001; 84703; 87086; 96365; 96375; 99283; J0696 ×2; J1885; J2270; J2405; J7030; J7060; 81000-TC

== ENCOUNTER 2020-01-29 20:42 | Emergency (ER) | payer OTHER ==
[~2020-01-29] VITALS: Ht 167.6 cm; Wt 86.2 kg
--- NOTE | 2020-01-29 20:50 | NUR ---
URINE COLLECTED AND SENT TO LAB
--- NOTE | 2020-01-29 20:51 | NUR ---
PT CAME TO THE ED C/O LOWER QUAD ABD PAIN X 2 WEEKS. +N/V. PT RECENTLY DIAGNOSED W/ UTI AND FINISHED ANTIOBIOTIC TREATMENT. PT AAOX4, VSS, RESPIRATIONS EVEN AND UNLABORED ON RA W/ NAD NOTED. PT CONNECTED TO THE LOGISTICAL ENGINEER AND POX.
--- NOTE | 2020-01-29 21:09 | NUR ---
BLOOD COLLECTED AND SENT TO LAB
[2020-01-29 21:10] LABS: APPEARANCE,URINE Slightly Cloudy (CLEAR); BILIRUBIN,URINE Negative (NEGATIVE); BLOOD, URINE Trace-lysed Ery/uL (NEGATIVE); COLOR,URINE Dark (YELLOW); KETONES,URINE Negative (NEGATIVE); LEUKOCYTE ESTERASE ,URINE Trace (NEGATIVE); NITRITE, URINE Negative (NEGATIVE); PROTEIN,URINE Negative (NEGATIVE); UGLUCOSE Negative (NEGATIVE)
[2020-01-29] MEDS ORDERED: ONDANSETRON HCL/PF 4 MG/2 ML VIAL ONE (21:13)
[2020-01-29] MEDS ORDERED: MORPHINE SULFATE INJ 4 MG/ML DISP.SYRIN ONE (21:14)
[2020-01-29] MEDS: IV NS 0.9% 1,000 ML BAG IV ONE (21:18)
[2020-01-29] MEDS: ONDANSETRON HCL/PF 4 MG/2 ML VIAL IVP ONE (21:19)
[2020-01-29] MEDS: MORPHINE SULFATE INJ 2 MG/ML DISP.SYRIN IV ONE (21:19)
[2020-01-29 21:32] LABS: BASOPHILS % (AUTO) 0.1 % (0.0-2.0); HEMATOCRIT 41 % (33-45); LYMPHOCYTES # (AUTO) 1.4 /CMM (0.8-4.8); LYMPHOCYTES % (AUTO) 28.5 % (20.0-44.0); MEAN CORPUSCULAR HGB CONC 34 g/dl (31.0-36.0); MEAN CORPUSCULAR VOLUME 88 fL (82-100); MONOCYTES # (AUTO) 0.3 /CMM (0.1-1.30); MONOCYTES % (AUTO) 6.3 % (2.0-12.0); NEUTROPHILS % (AUTO) 63.1 % (43.0-81.0); PLATELET COUNT (AUTO) 288 /CMM (150-450); WHITE BLOOD COUNT (AUTO) 4.8 K/uL (4.3-11.0)
[2020-01-29 21:39] LABS: BACTERIA,URINE Many /HPF (None Seen); SQUAMOUS EPITHELIAL CELL,UR Many /HPF (None Seen)
[2020-01-29 21:40] LABS: RBC,URINE 0-2 /HPF (0-2)
[2020-01-29 22:14] LABS: ALBUMIN 4.3 g/dL (3.4-5.0); BILIRUBIN,DIRECT 0.2 mg/dL (0.0-0.2); CALCIUM, SERUM 8.5 mg/dL (8.5-10.1); POTASSIUM 3.6 mmol/L (3.5-5.1); TOTAL PROTEIN, SERUM 7.9 g/dL (6.4-8.2)
--- NOTE | 2020-01-29 22:56 | NUR ---
PT TAKEN TO RADIOLOGY FOR CT
[2020-01-29] MEDS ORDERED: CEPHALEXIN MONOHYDRATE 500 MG CAPSULE PO ONE (23:38)
[2020-01-29] MEDS ORDERED: TRAMADOL HCL 50 MG TABLET ONE (23:38)
[2020-01-29] MEDS ORDERED: SULFAMETH/TRIMETH 800/160 MG 1 UDTAB TABLET ONE (23:39)
--- NOTE | 2020-01-29 23:42 | NUR ---
Patient discharged to home in stable condition. Written and verbal after care instructions given. Patient verbalizes understanding of instruction.IV removed. Catheter intact and site benign. Pressure and 4x4 applied to site. No bleeding noted.pt. ambulatory with a steady gait
[2020-01-29 23:46] VITALS: BP 124/81
[2020-01-29] MEDS: CEPHALEXIN MONOHYDRATE 500 MG CAPSULE PO ONE (23:47)
[2020-01-29] MEDS: TRAMADOL HCL 50 MG TABLET PO ONE (23:47)
[2020-01-29] MEDS: SULFAMETH/TRIMETH 800/160 MG 1 UDTAB TABLET PO ONE (23:47)
== END 2020-01-29 23:51 | disposition home or self-care (01) ==
LOC: ER 20:47
DX: R10.84 Generalized abdominal pain (principal); R11.2 Nausea with vomiting, unspecified; F17.200 Nicotine dependence, unspecified, uncomplicated; Z98.890 Other specified postprocedural states; Z90.49 Acquired absence of other specified parts of digestive tract; Z79.899 Other long term (current) drug therapy
CPT/HCPCS: 36415; 74176; 80048; 80076; 81001; 83690; 84703; 85025; 87086; 96361; 96374; 96375; 99284; J2270; J2405; J7030; 81000-TC

== ENCOUNTER 2020-05-04 18:11 | Emergency (ER) | payer OTHER ==
[~2020-05-04] VITALS: Ht 167.6 cm; Wt 90.7 kg
--- NOTE | 2020-05-04 19:05 | NUR ---
TOOK OVER PT CARE. PT AAOX4. AMBULATORY WITH STEADY GAIT, BIBSELF C/O WORSENING ABDOMINAL PAIN X 3 WEEKS, ASSOCIATED WITH NAUSEA/VOMITING. PT PLACED IN BED 10 ON MONITOR AND PULSE OX. VSS. PA AT BEDSIDE FOR EVAL. AWAITING ORDERS.
[2020-05-04 19:06] LABS: BILIRUBIN,URINE SMALL (NEGATIVE); BLOOD, URINE Moderate Ery/uL (NEGATIVE); COLOR,URINE RED (YELLOW); LEUKOCYTE ESTERASE ,URINE Negative (NEGATIVE); NITRITE, URINE Negative (NEGATIVE); PH,URINE 7.5 (5.0-8.0); PROTEIN,URINE 30 mg/dl (NEGATIVE); UGLUCOSE Negative (NEGATIVE); UROBILINOGEN,URINE 0.2 EU/dL (0.2)
--- NOTE | 2020-05-04 19:07 | NUR ---
VANDANAID SWABBED, SENT TO LAB.
--- NOTE | 2020-05-04 19:07 | NUR ---
LENDING MANAGER AT BEDSIDE
[2020-05-04 19:08] LABS: BASOPHILS % (AUTO) 0.3 % (0.0-2.0); EOSINOPHILS % (AUTO) 1.1 % (0.0-6.0); HEMATOCRIT 42 % (33-45); HEMOGLOBIN 14.2 g/dL (11.5-14.8); LYMPHOCYTES # (AUTO) 1.1 /CMM (0.8-4.8); LYMPHOCYTES % (AUTO) 20.4 % (20.0-44.0); MEAN CORPUSCULAR HGB CONC 34 g/dl (31.0-36.0); MEAN CORPUSCULAR VOLUME 87 fL (82-100); MONOCYTES # (AUTO) 0.3 /CMM (0.1-1.30); MONOCYTES % (AUTO) 5.6 % (2.0-12.0); NEUTROPHILS # (AUTO) 3.9 /CMM (1.8-8.9); NEUTROPHILS % (AUTO) 72.6 % (43.0-81.0); PLATELET COUNT (AUTO) 317 /CMM (150-450); WHITE BLOOD COUNT (AUTO) 5.3 K/uL (4.3-11.0)
[2020-05-04 19:13] LABS: BACTERIA,URINE Few /HPF (None Seen); RBC,URINE 21-50 /HPF (0-2); SQUAMOUS EPITHELIAL CELL,UR Few /HPF (None Seen); WBC,URINE NONE SEEN /HPF (0-3)
[2020-05-04 19:26] LABS: BILIRUBIN,DIRECT 0.3 mg/dL (0.0-0.2); BILIRUBIN,TOTAL 1.3 mg/dL (0.2-1.0); CALCIUM, SERUM 9.4 mg/dL (8.5-10.1); CREATININE 0.7 mg/dL (0.6-1.3); TOTAL PROTEIN, SERUM 8.1 g/dL (6.4-8.2)
[2020-05-04] MEDS ORDERED: ONDANSETRON HCL/PF 4 MG/2 ML VIAL ONE (19:32)
[2020-05-04] MEDS ORDERED: MORPHINE SULFATE INJ 4 MG/ML DISP.SYRIN ONE (19:32)
[2020-05-04] MEDS: MORPHINE SULFATE INJ 2 MG/ML DISP.SYRIN IV ONE (19:40)
[2020-05-04] MEDS: IV NS 0.9% 1,000 ML BAG IV ONE (19:40)
[2020-05-04] MEDS: ONDANSETRON HCL/PF 4 MG/2 ML VIAL IVP ONE (19:40)
[2020-05-04] MEDS: KETOROLAC TROMETHAMINE INJ 30 MG/ML VIAL IV ONE (20:00)
[2020-05-04] MEDS ORDERED: KETOROLAC TROMETHAMINE INJ 30 MG/ML VIAL ONE (20:02)
--- NOTE | 2020-05-04 20:11 | NUR ---
PT STATED SHE FEELS BETTER. VSS.
--- NOTE | 2020-05-04 20:30 | NUR ---
Patient discharged to home in stable condition. Written and verbal after care instructions given. Patient verbalizes understanding of instruction. Pt ambulated with steady gait. vss. Denies pain.
[2020-05-04 20:34] VITALS: BP 121/78
== END 2020-05-04 20:34 | disposition home or self-care (01) ==
LOC: ER 18:13
DX: R10.30 Lower abdominal pain, unspecified (principal); G43.909 Migraine, unspecified, not intractable, without status migrainosus; Z20.828 Contact with and (suspected) exposure to other viral communicable diseases; Z87.440 Personal history of urinary (tract) infections; Z90.49 Acquired absence of other specified parts of digestive tract; R31.9 Hematuria, unspecified
CPT/HCPCS: 36415; 80048; 80076; 81001; 83690; 84703; 85025; 96361; 96374; 96375; 99284; C9803; J1885; J2270; J2405; J7030; U0003